=== PATIENT | female | born 1990 | race Caucasian/White ===

== ENCOUNTER 2017-11-13 13:01 | Emergency (ER) | payer OTHER ==
[~2017-11-13] VITALS: Ht 152.4 cm; Wt 49.9 kg
[2017-11-13 13:09] VITALS: Ht 152.4 cm; Wt 49.9 kg
[2017-11-13 14:34] LABS: BASOPHIL % 1.1 % (0-2); PLATELET COUNT 291 x10^3mcL (130-400)
[2017-11-13 14:42] LABS: CALCIUM 7.6 mg/dL (8.5-10.1); CARBON DIOXIDE 24.5 mmol/L (21-32); CHLORIDE SERUM 106 mmol/L (98-107); CREATININE SERUM 0.7 mg/dL (0.6-1.0); GFR1 > 60 mL/min; GLUCOSE SERUM 85 mg/dL (74-106); POTASSIUM SERUM 3.7 mmol/L (3.5-5.1); SODIUM SERUM 140 mmol/L (136-145)
[2017-11-13 14:47] LABS: ALBUMIN 3.4 g/dL (3.4-5.0); ALKALINE PHOSPHATASE 62 U/L (46-116); ALT/SGPT 12 U/L (14-59); BILIRUBIN TOTAL 0.4 mg/dL (0.20-1.00); CHOLESTEROL 154 mg/dL (<200); CHOLESTEROL/HDL RATIO 3.1; HDL CHOLESTEROL 49 mg/dL (40-60); LIPASE 82 IU/L (73-393); TOTAL PROTEIN, SERUM 6.6 g/dL (6.4-8.2); TRIGLYCERIDES 43 mg/dL (<150)
[2017-11-13 14:58] LABS: AST/SGOT 12 U/L (15-37)
[2017-11-13 15:00] LABS: T3 TOTAL 1.02 ng/mL
[2017-11-13 15:03] LABS: UA SPECIFIC GRAVITY 1.015 (1.005-1.035); microscopic required? YES; urine erythrocyte NEGATIVE (NEGATIVE)
[2017-11-13 15:23] LABS: FREE T4 1.12 ng/dL (0.76-1.46); FREE THYROXINE INDEX 3.1 ug/dL (1.4-4.5); T4(THYROXINE) 8.2 ug/dL (4.7-13.3)
[2017-11-13 16:25] LABS: AMPHETAMINE QUAL UR NONE DETECTED (See below)
[2017-11-13 17:23] VITALS: BP 103/58
== END 2017-11-13 17:23 ==
LOC: ED 13:01
PROVIDERS: Specialist
DX: R55 Syncope and collapse (principal); Z88.1 Allergy status to other antibiotic agents
CPT/HCPCS: 83880; 84439; G0480; J7030; Q0092